=== PATIENT | male | born 1950 | race Caucasian/White ===

== ENCOUNTER 2020-11-25 09:01 | Inpatient (IN) | payer OTHER ==
[~2020-11-25] VITALS: Ht 180.3 cm; Wt 104.3 kg
[~2020-11-25 09:01] MED LIST: ATO40T PO; VALS40TA2 PO
[2020-11-25] MEDS ORDERED: MIDAZOLAM HCL 2MG/2ML 2ml VIAL (1mg/ml) ONE (10:10)
[2020-11-25] MEDS ORDERED: fentaNYL CITRATE 100 MCG/2 ML VL ONE (10:10)
[2020-11-25] MEDS ORDERED: ONDANSETRON HCL 4 MG/2 ML VIAL ONE (10:10)
[2020-11-25] MEDS ORDERED: PROPOFOL 10 MG/ML 20 ML IV ONE (10:10)
[2020-11-25] MEDS ORDERED: SODIUM CHLORIDE LOCK 10 ML ONE (10:10)
[2020-11-25] MEDS ORDERED: BUPIVACAINE/DEXTROSE MPF 0.75% 2 ML AMP IT ONE (10:11)
[2020-11-25] MEDS ORDERED: MORPHINE SULF PF 2 MG/2 ML SYRG ONE (10:11)
[2020-11-25] MEDS ORDERED: EPINEPHrine HCL 1 MG/1 ML AMP ONE ×2 (10:11→11:15)
[2020-11-25] MEDS ORDERED: ceFAZolin 1GM/50ML 100 ML IV ONE (10:15)
[2020-11-25] MEDS ORDERED: TRANEXAMIC ACID 20 ML ONE (10:43)
[2020-11-25] MEDS ORDERED: TETRACAINE 1% INJ 2 ML VIAL IJ ONE (11:15)
[2020-11-25] MEDS ORDERED: VANCOMYCIN HCL 1000 MG VL ONE (11:16)
[2020-11-25] MEDS ORDERED: oxyCODONE HCL 5MG TAB PO PRN ×2 (14:00)
[2020-11-25] MEDS ORDERED: HYDROmorphone HCL 2 MG/ML VL IV PRN ×2 (14:00→14:15)
[2020-11-25] MEDS ORDERED: ACETAMINOPHEN 325 MG TAB PO PRN (14:00)
[2020-11-25] MEDS ORDERED: diphenhdrAMINE HCL 50 MG/1 ML VL IV PRN (14:15)
[2020-11-25] MEDS ORDERED: MORPHINE SULFATE 4 MG/ML SYR/VIAL IV PRN (14:15)
[2020-11-25] MEDS ORDERED: NALOXONE HCL 0.4 MG/ML VIAL IV PRN (14:15)
[2020-11-25] MEDS ORDERED: ceFAZolin 2 GM in D5W 5% 100 ML IV SCH ×2 (14:30→19:30)
[2020-11-25 17:10] VITALS: BP 138/81
[2020-11-25] MEDS: D5W/LACTATED RINGERS 1,000 ML IV SCH (17:10)
[2020-11-25 17:33] VITALS: BP 158/86
[2020-11-25 18:01] VITALS: BP 124/81
[2020-11-25] MEDS: KETOROLAC TROMETH 30 MG/ML 1ML VIAL IV SCH (18:59)
[2020-11-25 19:00] VITALS: BP 138/70
[2020-11-25] MEDS: ACETAMINOPHEN 325 MG TAB PO SCH (19:00)
[2020-11-25 21:00] VITALS: BP 124/80
[2020-11-25 22:00] VITALS: BP 124/80
[2020-11-25] MEDS ORDERED: ATORVASTATIN 20 MG TAB PO SCH (22:00)
[2020-11-25] MEDS: ASPirin 81 mg TAB PO SCH (23:50)
[2020-11-25] MEDS: PREGABALIN 25 MG CAP PO SCH (23:51)
[2020-11-26] VITALS (10 sets, daily range): BP systolic 117–138; BP diastolic 74–82
[2020-11-26] MEDS: ACETAMINOPHEN 325 MG TAB PO SCH ×3 (00:47→12:08)
[2020-11-26] MEDS: KETOROLAC TROMETH 30 MG/ML 1ML VIAL IV SCH ×3 (00:47→12:08)
[2020-11-26] MEDS: D5W/LACTATED RINGERS 1,000 ML IV SCH ×2 (05:12→10:00)
[2020-11-26 06:59] LABS: Basophils # (auto) 0 10 ^3/uL (0-0.2); Basophils % (auto) 0.5 % (0.0-2.0); Eosinophils # (auto) 0.1 10 ^3/uL (0-0.8); Hematocrit 34.8 % (41.0-53.0); Hemoglobin 12.1 g/dL (13.5-17.5); Lymphocytes % (auto) 18.6 % (10.0-50.0); Mean Corpuscular Hemoglobin 31.5 pg (28.0-32.0); Mean Corpuscular Hgb Conc. 34.7 g/dL (32.0-36.0); Mean Corpuscular Volume 90.8 fL (80.0-100.0); Monocytes # (auto) 0.9 10 ^3/uL (0-1.3); Monocytes % (auto) 16.6 % (0.0-12.0); Neutrophils # (auto) 3.4 10 ^3/uL (1.6-8.6); Neutrophils % (auto) 62.3 % (37.0-80.0); Red Blood Cells 3.83 10^6/uL (4.5-5.90); Red Cell Distribution Width 13.8 % (11.8-14.3); White Blood Cell 5.5 10^3/uL (4.4-10.8)
[2020-11-26 07:08] LABS: Calcium 8.1 mg/dL (8.5-10.1); Potassium 4.1 mmol/L (3.5-5.1)
[2020-11-26 07:12] LABS: BUN/Creatinine Ratio 13.3
[2020-11-26] MEDS ORDERED: VALSARTAN 80 MG TAB PO SCH (10:00)
[2020-11-26] MEDS: ASPirin 81 mg TAB PO SCH (10:18)
[2020-11-26] MEDS: PREGABALIN 25 MG CAP PO SCH (10:18)
== END 2020-11-26 15:58 | disposition home health service (06) | DRG 470 ==
LOC: SUR 09:01 → TELE 14:00 → TELE-WESTW 17:21
PROVIDERS: ADMIT Orthopaedic Surgery; ATTEND Orthopaedic Surgery
PROC: 0SRC06Z Replacement of Right Knee Joint with Oxidized Zirconium on Polyethylene Synthetic Substitute, Open Approach (ICD-10-PCS; principal; 2020-11-25 11:37)
DX: M17.11 Unilateral primary osteoarthritis, right knee (principal); I10 Essential (primary) hypertension; E78.5 Hyperlipidemia, unspecified; Z82.49 Family history of ischemic heart disease and other diseases of the circulatory system; Z20.822 Contact with and (suspected) exposure to COVID-19; Z87.891 Personal history of nicotine dependence
CPT/HCPCS: 36415; 73562; 80048; 85025; 86850; 86900; 86901; 97110; 97116; 97530; C1713; G0378; J0171; J0690; J1885; J2250; J2405; J2704; J7060

== ENCOUNTER → 2021-04-12 | Day surgery (SDC) | payer OTHER ==
[~2021-04-12] VITALS: Ht 180.3 cm; Wt 95.3 kg
[~2021-04-12] MED LIST changes: +CHOL100047 PO; +DexAMETHasone SOD PHOS 10MG/1ML VIAL INJ ONE; +HYDROmorphone HCL 2 MG/ML VL IV PRN; +IBUP800T27 PO; +LABETALOL HCL 5 MG/ML 4ML SYRINGE IV PRN; +MIDAZOLAM HCL 2MG/2ML 2ml VIAL (1mg/ml) IV PRN; +MIDAZOLAM HCL 2MG/2ML 2ml VIAL (1mg/ml) ONE; +MISCTAB PO; +MORPHINE SULFATE 4 MG/ML SYR/VIAL IV PRN; +MULT-928 PO; +OMEG100062 PO; +ONDANSETRON HCL 4 MG/2 ML VIAL IV PRN; +PROPOFOL 10 MG/ML 20 ML IV ONE; -VALS40TA2 PO; +VALS80TA44 PO; +ePHEDrine SULFATE 50 MG/ML AMP IV PRN; +fentaNYL CITRATE 100 MCG/2 ML VL ONE
[2021-04-12 08:15] VITALS: BP 124/75
== END | disposition home or self-care (01) ==
LOC: SUR 04-08 11:43
PROVIDERS: ATTEND Orthopaedic Surgery
DX: M24.561 Contracture, right knee (principal); I10 Essential (primary) hypertension; E78.5 Hyperlipidemia, unspecified; Z87.891 Personal history of nicotine dependence; Z82.49 Family history of ischemic heart disease and other diseases of the circulatory system; Z20.822 Contact with and (suspected) exposure to COVID-19
CPT/HCPCS: 27447; 73562; J1100; J2250; J2704; J3010; U0003